=== PATIENT | female | born 1950 | race Caucasian/White ===

== ENCOUNTER → 2020-10-18 13:52 | Outpatient (BNVA) | payer MEDICARE, SELFPAY | PROVIDERS: PCP Internal Medicine; Visit Provider Hospitalist | DX: J44.9 Chronic obstructive pulmonary disease, unspecified (principal); R91.8 Other nonspecific abnormal finding of lung field | CPT/HCPCS: 99202 ==

== ENCOUNTER → 2021-05-09 10:57 | Outpatient (BNVA) | payer MEDICARE, SELFPAY | PROVIDERS: PCP Internal Medicine; Visit Provider Hospitalist ==

== ENCOUNTER 2021-09-06 10:55 | Outpatient (REF) | payer MEDICARE, MEDICAID, SELFPAY ==
--- NOTE | 2021-09-06 17:30 | PFT_ITS ---
FLOWS: FEV1 50% of predicted at 1.19 L. FVC 69% of predicted at 2.19 L. FEV1 to FVC ratio of 0.54. No bronchodilator response. LUNG VOLUMES: Total lung capacity 99% of predicted at 5.27 L. Residual volume 130% of predicted at 2.99 L. Slow vital capacity 76% of predicted at 2.27 L. Expiratory reserve volume 52% of predicted at 0.38 L. Diffusion capacity is moderately decreased, diffusion capacity adjusts to being mildly decreased after correction for alveolar ventilation. IMPRESSION: Moderate to severe obstructive ventilatory defect with no bronchodilator response. Increased residual volume suggests air trapping. Decreased diffusion capacity suggests emphysema. MD DULCE MARIA Pop/MODL / [id number]
== END 2021-09-06 10:56 | disposition home or self-care (01) ==
LOC: HO.RESP 10:55
PROVIDERS: PCP Internal Medicine; Visit Provider Hospitalist
DX: J41.0 Simple chronic bronchitis (principal)
CPT/HCPCS: 94060; 94727; 94729

== ENCOUNTER → 2021-10-03 10:49 | Outpatient (BNVA) | payer MEDICARE, MEDICAID, SELFPAY | PROVIDERS: PCP Internal Medicine; Visit Provider Hospitalist | DX: R91.8 Other nonspecific abnormal finding of lung field (principal); J41.0 Simple chronic bronchitis; F17.200 Nicotine dependence, unspecified, uncomplicated | CPT/HCPCS: 99212 ==

== ENCOUNTER 2022-07-18 11:41 | Outpatient (REF) | payer MEDICARE, OTHER, SELFPAY ==
[2022-07-18 11:57] LABS: MANUAL DIFF FLAG NO
[2022-07-18 12:12] LABS: Basophils Percent Auto 0.6 % (0-2); Eosinophils Absolute Auto 0.1 X10*3/uL (0.0-0.4); Eosinophils Percent Auto 1.8 % (0-4); Hematocrit 41.9 % (37.0-47.0); Hemoglobin 14.3 g/dl (12.0-16.0); Imm Gran Abs Auto 0.01 X10*3/uL (0.00-0.03); Imm Gran Pct Auto 0.1 % (0.0-0.4); Lymphocytes Absolute Auto 1.7 X10*3/uL (1.2-4.9); Mean Corpuscular HGB Conc 34.1 g/dl (31.0-35.0); Mean Corpuscular Hemoglobin 32.1 pg (27.0-33.0); Mean Corpuscular Volume 94.2 fL (80.0-98.0); Mean Platelet Volume 9.4 fL (9.4-12.3); Monocytes Absolute Auto 0.8 X10*3/uL (0.1-1.2); Monocytes Percent Auto 11.3 % (2-11); Neutrophils Absolute Auto 4.1 x10*3/uL (2.0-8.3); Neutrophils Percent Auto 61.2 % (45-73); Platelet Count 313 X10*3/uL (160-400); Red Blood Count 4.45 X10*6/uL (4.20-5.50); White Blood Count 6.7 X10*3/uL (4.8-10.8)
[2022-07-18 12:48] LABS: Erythrocyte Sedimentation Rate 5 MM/HR (0-20)
[2022-07-19 21:47] LABS: Immunoglobulin E 206 kU/L (<OR=114)
[2022-07-20 16:18] LABS: Cyclic Citrullinated Peptide <16 UNITS
[2022-07-20 22:07] LABS: Anti Nuclear Antibody Screen NEGATIVE (NEGATIVE)
[2022-07-21 05:26] LABS: Angiotensin Converting Enzyme 20 U/L (9-67)
[2022-07-23 14:26] LABS: Asperg fumigatus Precip Abs NEGATIVE (NEGATIVE); Micropoly faeni Abs NEGATIVE (NEGATIVE); Pigeon serum Abs NEGATIVE (NEGATIVE); Saccharo pora viridis Abs NEGATIVE (NEGATIVE); Thermo candidus Abs NEGATIVE (NEGATIVE); Thermoa vulgaris #1 NEGATIVE (NEGATIVE)
== END 2022-07-18 11:42 | disposition home or self-care (01) ==
LOC: HO.LAB 11:41
PROVIDERS: PCP Internal Medicine; Visit Provider Hospitalist
DX: J18.9 Pneumonia, unspecified organism (principal); R91.8 Other nonspecific abnormal finding of lung field; J41.0 Simple chronic bronchitis; F17.200 Nicotine dependence, unspecified, uncomplicated
CPT/HCPCS: 36415; 82164; 82785; 85025; 85652; 86038; 86039; 86200; 86331; 86606; 86609; 99212

== ENCOUNTER → 2022-10-25 11:16 | Outpatient (BNVA) | payer MEDICARE, OTHER, SELFPAY | PROVIDERS: PCP Internal Medicine; Visit Provider Hospitalist | DX: R91.8 Other nonspecific abnormal finding of lung field (principal); J41.0 Simple chronic bronchitis; F17.200 Nicotine dependence, unspecified, uncomplicated; Z71.6 Tobacco abuse counseling | CPT/HCPCS: 99212 ==

== ENCOUNTER → 2023-05-11 15:18 | Outpatient (BNVA) | payer MEDICARE, OTHER, SELFPAY | PROVIDERS: PCP Internal Medicine; Visit Provider Hospitalist | DX: R91.8 Other nonspecific abnormal finding of lung field (principal); J41.0 Simple chronic bronchitis; F17.200 Nicotine dependence, unspecified, uncomplicated | CPT/HCPCS: 99212 ==

== ENCOUNTER 2024-05-08 12:44 | Outpatient (REF) | payer MEDICARE, MEDICAID, SELFPAY ==
--- NOTE | ~2024-05-08 | CT_ITS ---
EXAMINATION: CT CHEST WITHOUT CONTRAST CLINICAL INFORMATION: Other nonspecific abnormal finding of lung field. COMPARISON: CT chest dated 06/27/2022. TECHNIQUE: Multidetector volumetric CT imaging of the chest was done. Axial MIP volume rendering provided. Sagittal and coronal reformatted images were obtained. This CT examination was performed using dose optimization techniques as appropriate, variously including the following: *Automated exposure control *Adjustment of mA and/or kV according to patient size (this includes techniques or standardized protocols for targeted exams where dose is matched to indication/reason for exam; i.e. extremities or head) *Use of iterative reconstruction technique DLP: 124 mGy-cm FINDINGS: [employer]: The lungs are symmetrically well-expanded and grossly clear. LUNGS: A small benign, calcified granuloma is seen at the right apex (5:68). There are several noncalcified right lung nodules. The largest within the right upper lobe is seen within the posterior segment abutting the pleural surface, measuring 6 mm (5:140). The largest nodule within the right lower lobe is situated in the anterior basal segment (5:321), measuring 5 mm. As well, there are several scattered noncalcified left lung nodules. The largest within the left upper lobe is located in the apicoposterior segment (5:130), measuring 5 mm. The remaining left lung nodules are quite small, measuring 1-3 mm. These bilateral lung nodules appear stable from 06/27/2022. There is overall interim decrease in size and number of pulmonary nodules. There is no mass, infiltrate or groundglass opacity. There are mild centrilobular emphysematous changes. There is scar/subsegmental atelectasis within the anterior and posterior bases, without associated focal airway obstruction. There is mild small airway thickening. The central airways appear patent. MEDIASTINUM: The mediastinum is normal. CORONARY ARTERY CALCIFICATION: Mild. PLEURA: There is no pleural effusion. No pleural mass or thickening. AXILLA: No lymphadenopathy. UPPER ABDOMEN: Unremarkable. OSSEOUS STRUCTURES: There is multi-level lower cervical and thoracic degenerative disc disease and endplate arthropathy. No acute or aggressive osseous finding is noted. CT/CT chest wo IV con IMPRESSION: 1. There are benign, stable noncalcified and calcified bilateral lung nodules, the largest measuring 6 mm within the posterior segment of the right upper lobe. Overall, there is interim decrease in size and number of pulmonary nodules. According to the UPDATED 2017 Fleischner Society recommendations, the advised follow-up imaging for multiple solid nodules, the largest measuring 6 mm or greater, is: LOW RISK PATIENT: CT at 3-6 months, then consider CT at 18-24 months. HIGH RISK PATIENT: CT at 3-6 months, then at 18-24 months. 2. There are mild centrilobular emphysematous changes. 3. There are bibasilar scattered foci of scar/subsegmental atelectasis, without associated focal airway obstruction. 4. No thoracic lymphadenopathy or pleural effusion is seen. 5. There are degenerative changes of the spine. Fleischner guidelines were followed.
== END 2024-05-08 12:45 | disposition home or self-care (01) ==
LOC: HO.CT 12:44
PROVIDERS: PCP Internal Medicine; Visit Provider Hospitalist
DX: R91.8 Other nonspecific abnormal finding of lung field (principal)
CPT/HCPCS: 71250

== ENCOUNTER 2024-12-30 13:33 | Outpatient (AMB) | payer MEDICARE, MEDICAID, SELFPAY ==
--- NOTE | 2024-12-30 13:40 | A.OFFVIS_ITS ---
Vital Signs 12/30/24 13:41 Height 5 ft 5 in Weight 151 lb 0.266 oz BMI 25.1 BP 170/90 H Blood Pressure Location Rt brachial Position Sitting Pulse 84 Pulse Source Pulse Oximeter Pulse Oximetry (%) 98 Oxygen Delivery Method Room Air Intake Visit Reasons: COPD Allergies moxifloxacin [From Avelox] Allergy (Severe, Verified 12/30/24 13:45) Anaphylaxis levofloxacin [From Levaquin] Adverse Reaction (Severe, Verified 12/30/24 13:45) Anaphylaxis HPI Comments Details: The patient is a 74-year-old woman with a known history of COPD in addition to pulmonary nodules. She has been using her trilogy inhaler once a day. However, she still requires her short-acting beta agonists once a day as well. Usually for shortness of breath. Currently she feels well. She denies any significant mucus production or chest discomfort. She did undergo a CT scan of the chest done the lung cancer screening program demonstrating stable pulmonary nodules. She did have it done at [facility]. Right now I do not have the access to look at the CT scan myself, but I will make arrangements to do so. Her pulmonary nodules have been small and stable. In addition to that she has been using her respiratory therapy with effect. She still struggling with smoking. Sometimes her cravings a significant specially with the COVID-19 infections in the pandemic. Makes her anxious and she wants to smoke. When that happens she has but the patch on. She is going to try using the smaller 7 mg patch that she can use daily. 05/09/2021 the patient is here for pulmonary follow-up visit. Overall she has been doing well from a respiratory status. The inhaler, Trelegy, has been working well. She continues to use it daily. She has not required her short- acting beta agonist. She has not required any prednisone. Unfortunately, she continues to smoke cigarettes. She has been through some stressful situations. At times the cravings with sick versus significant. We did talk about her nicotine patch but I do not believe this will help her in that moment in time. She would be something the or quicker such as the Nicotrol inhaler. I will submit that to her insurance company in order for her to continue the tobacco cessation which will hopefully improve her respiratory status. the patient has tried and failed the continue patch. She does have underlying pulmonary nodules. She is scheduled for CT scan of the chest at [facility] sometime or in mid May. 10/03/2021 the patient is here for a pulmonary follow-up visit. She continues to have dyspnea on exertion. Moderate in severity. She continues to have good response to the Trelegy inhaler. Is working well. She has not required her short-acting beta agonist. She understands that she needs to start exercising. I did give her information about online pulmonary rehab. She is considering getting a stationary bike which is also reasonable. She did undergo pulmonary function studies that I personally reviewed with her. She does have severe COPD in addition to that has significant air trapping and moderate diffusion impairment. Patient's DLCO still good enough that she does not require oxygen supplementation. She knows to continue working on the smoking. She needs to quit completely. The patient is scheduled to have a repeat CT scan of the chest sometime in the summer of 2021. Will follow up with her in the fall and review that together. Otherwise the patient is to call if any other issues arise prior to the next visit 07/18/2022 the patient is here for a pulmonary follow-up visit. Since we last spoke the patient has been dealing with significant tragedies in her life. her brother recently . After he back in March she started becoming significantly stressed and she went back to smoking. She has been smoking between half to 1 pack a day. She has also noticed increasing shortness of breath specially with the heat and humidity. She has been undergoing the chest medical she. The last CT scan was June of 2022. she was set up for an urgent follow-up in view of the abnormal findings. Patient appeared to have stable pulmonary nodules although now has new multiple bilateral subsolid nodules and ground-glass nodular densities both in the upper lobes. the patient also has evidence of chronic bronchitis and again the stable noncalcified pulmonary nodules also identified. As far as her home she denies any exposure to any mold or any birds. The only significant factor is that she has been smoking again. Explained to her the smoking related interstitial lung conditions are possible. The patient is interested in quitting. Will start her on Wellbutrin and also a patch. In the meantime the patient has evidence of chronic bronchitis. Therefore will treated for chronic bronchitis and also has had been having some chest tightness so therefore will also give her some steroids. I am hopeful michael t by treating her aggressively and by her quitting smoking her that we can repeat her CT scan in 3 months since he improvement of those areas. In the meantime were also going to request blood work. 05/11/2023 The patient is here for a pulmonary follow-up visit. The patient has been doing relatively well. She continues to use her respiratory medications with good effect. She did try to stop the azithromycin 3 times a week. But, her symptoms started getting worse again and her cough got worse and her chest congestion also got worse. Therefore she went back on it. Seems to be tolerating well. She did have an EKG with primary care doctor. She still struggling with smoking. She did not want to take the Wellbutrin or chantix because she was concerned about the side effects. This will be a more effective medication for her anyway. The patient knows people that have taking it already and had done well with that. Therefore she is open to starting this medication. She will start with a starter pack it and then when she is tolerating that she can call me and I will send the additional maintenance medication to the pharmacy. We did review her last CT scan that she had just la st week 05/11/2023 demonstrating interval improvement in the pulmonary nodules. 12/30/2024 the patient is here for pulmonary follow-up visit. The patient has been sick now for a month or 2. She has had initially significant chest congestion was given a course of antibiotics by her primary care. She has had 2 chest x-rays which have been okay. She notes complaining of some sinus pressure and some postnasal drip. She has a hard time expectorating. She needs to get another Acapella valve at some went to the [employer] in order for her to get 1. She has used it before and she notes that using. She also has a nebulizer. Seems like a nebulizer is working okay. She needs use it at least twice a day to help over chest PT and mucus clearance. In the meantime the patient will be started antibiotics to treat her for the sinusitis and also chronic bronchitis. We did provide her with a sputum cup and we were to get a sputum culture to sent to the laboratory and if this is growing a different type of organism the requires a different antibiotic at least we can change her antibiotic course at that point. Patient will return a couple months if she has any issues prior to that she will call for an earlier assessment. [facility] Medical History (Updated 12/30/24 @ 22:40 by Jose Alvarez MD) Sinusitis Hypertension Chest pain Pneumonitis Tobacco dependence Pulmonary nodules COPD (chronic obstructive pulmonary disease) Family History (Updated 10/18/20 @ 19:49 by Jose Alvarez MD) Other HTN (hypertension) Social History (Updated 12/30/24 @ 13:45 by Evelyn Torre CMA) Patient Tobacco Use Status: Former Tobacco user Years Smoked: 20 years Review of Systems Const Denies night sweats ENT Denies change in voice, Denies lip swelling, Denies mouth pain, Reports nasal congestion, Reports nasal discharge, Reports post nasal drip, Reports sinus pa in, Reports sinus pressure and Denies tongue swelling Card Denies chest pain and Reports dyspnea on exertion Resp Denies change in phlegm color, Reports chest congestion, Reports cough, Reports dyspnea on exertion and Denies wheezing GI Denies abdominal pain Musc Denies no additional complaints Neuro Denies Neuro-related abnormal movements Psych Denies no additional complaints Tony/Lymph Denies easy bleeding and Denies lymphadenopathy Aller/Immun Denies lip swelling, Denies tongue swelling and Denies wheezing Physical Exam Vital Signs: Last Vital Signs Pulse 84 12/30/24 13:41 BP 170/90 H 12/30/24 13:41 Pulse Ox 98 12/30/24 13:41 Oxygen Delivery Method Room Air 12/30/24 13:41 BMI result Body Mass Index 25.1 Const General: alert Neck Neck: Yes normal visual inspection, Yes full ROM and Yes no lymphadenopathy Chest Chest palpation & inspection: normal inspection of the chest Resp Auscultation: no rhonchi, no wheezes and diminished lung sounds Cardio Rate: regular rate Rhythm: regular rhythm Heart sounds: S1 normal heart sound present and S2 normal heart sound present GI Palpation (GI): Soft to palpation and nontender Auscultation: normal bowel sounds Skin General skin exam: rashes and/or lesions noted Quality Reporting (2019) Adult ([facility] 138/01/03/69) Smoking risk assessment performed?: Yes Patient Tobacco Use Status: Current everyday Tobacco user Assessment & Plan Assessment & Plan (1) Pulmonary nodules: Code(s): R91.8 - Other nonspecific abnormal finding of lung field Category: Medical (2) COPD (chronic obstructive pulmonary disease): Code(s): J44.9 - Chronic obstructive pulmonary disease, unspecified Category: Medical Qualifiers: COPD type: chronic bronchitis Chronic bronchitis type: mucopurulent Qualified Code(s): J41.1 - Mucopurulent chronic bronchitis (3) Tobacco dependence: Code(s): F17.200 - Nicotine dependence, unspecified, uncomplicated Category: Medical (4) Hypertension: Code(s): I10 - Essential (primary) hypertension Category: Medical Qualifiers: Hypertension type: primary hypertension Qualified Code(s): I10 - Essential (primary) hypertension (5) Chest pain: Code(s): R07.9 - Chest pain, unspecified Category: Medical Qualifiers: Chest pain type: unspecified Qualified Code(s): R07.9 - Chest pain, unspecified (6) Sinusitis: Code(s): J32.9 - Chronic sinusitis, unspecified Category: Medical Qualifiers: Sinusitis location: unspecified location Chronicity: subacute Qualified Code(s): J01.90 - Acute sinusitis, unspecified Plan continue Trelegy inhaler short-acting beta agonist as needed stopped azithromycin 3 times a week start Augmentin Sputum cx EKG Bloodwork Tobacco cessation: CT scan of the chest in 4-6 months Follow-up in 2 months Needs to F/U with PCP for a BP check Orders: Orders Troponin-I High Sensitivity Today I10 - Essential (primary) hypertension, R07.9 - Chest pain, unspecified Complete Blood Count Auto Diff Today I10 - Essential (primary) hypertension, R07.9 - Chest pain, unspecified Erythrocyte Sedimentation Rate Today I10 - Essential (primary) hypertension, R07.9 - Chest pain, unspecified Basic Metabolic Panel Today I10 - Essential (primary) hypertension, R07.9 - Chest pain, unspecified ECG 12 lead EKG Today J44.9 - Chronic obstructive pulmonary disease, unspecified, R07.9 - Chest pain, unspecified Sputum Cult + Gram stain Today R91.1 - Solitary pulmonary nodule CT chest wo IV con 4 Months R91.8 - Other nonspecific abnormal finding of lung field Medications: New amoxicillin-pot clavulanate 875-125 mg 1 tab PO BID 14 days 28 tabs 0RF ipratropium-albuterol 0.5 mg-3 mg(2.5 mg base)/3 mL 3 mL inhalation BID 30 days 180 mL 11RF J44.9 - Chronic obstructive pulmonary disease, unspecified Coding Level of Care Code Est Pt Level 4 (97990) Complex EM visit Add On G2211 Diagnoses Pulmonary nodules R91.8 Mucopurulent chronic bronchitis J41.1 COPD type: chronic bronchitis Chronic bronchitis type: mucopurulent Tobacco dependence F17.200 Primary hypertension I10 Hypertension type: primary hypertension Chest pain, unspecified type R07.9 Chest pain type: unspecified Subacute sinusitis, unspecified location J01.90 Sinusitis location: unspecified location Chronicity: subacute Time Spent (min) 18
[2024-12-30 13:41] VITALS: BP 170/90; PULSE 84; O2SAT 98; BMI 25.1
--- OUTSIDE RECORDS SUMMARY | 2024-12-30 14:30 | XMS_ITS | Encounter Summary ---
Author Organization [facility] Address [address] [place] [address] Care Team Providers Care Horticultural Manager Name Role Phone Jersey Rodriguez MD Primary Care Provider + [phone] Encounter Details Date Type Department Care Team (Latest Contact Info) Description 12/05/2024 9:13 AM EST - 12/05/2024 11:59 PM EST Hospital Encounter [facility] Xray [address] [place] [id number] Acute cough Discharge Disposition: Home or Self Care Social History Tobacco Use Types Packs/Day Years Used Date Smoking Tobacco: Former Cigarettes Q uit: 10/12/2018 Smokeless Tobacco: Never Alcohol Use Standard Drinks/Week Comments Yes 0 (1 standard drink = 0.6 oz pur e alcohol) Comments No Sex and Gender Information Value Date Recorded Sex Assigned at Female 10/16/2024 2:59 PM EST Legal Sex Female 10:27 PM EST Gender Identity Female 10/16/2024 2:59 PM EST Sexual Orientation Choose not to disclose 2023 2:59 PM EST documented as of this encounter Discharge Disposition Disposition Code Departure Means Destination Home or Self Care documented in this encounter Plan of Treatment Not on file documented as of this encounter Procedures Procedure Name Priority Date/Time Associated Diagnosis Comments XR CHEST 2 VIEWS Routine 12/05/2024 9:31 AM EST Acute cough documented in this encounter Results * XR Chest 2 Views (12/05/2024 9:31 AM EST) Anatomical Region Laterality Modality Body Radiographic Kristie ging 12/05/2024 12:0 8 PM EST Impressions 12/05/2024 12:09 PM EST No acute pulmonary disease. ??Findings as above consistent with COPD. ??Mild cardiomegaly. ??No change since 11/17/2024. Code 92361 -------- FINAL REPORT -------- Dictated By: Fermin Rae Dictated Date: 12/05/2024 12:08 ET Assigned Physician: Fermin Rae Reviewed and Electronically Signed By: Fermin Rae Signed Date: 12/05/2024 12:09 ET Workstation ID: [id number] Transcribed By: Self Edit Transcribed Date: 12/05/2024 12:08 ET Narrative 12/05/2024 12:09 PM EST HISTORY: The patient is a 74-year-old female with dyspnea and recent upper respiratory infection. FINDINGS: PA and lateral radiographs of the chest demonstrate mild levoscoliosis of the thoracic spine and dextroscoliosis of the thoracic lumbar spine as also seen on the prior study performed 11/17/2024. ??The cardiac silhouette remains mildly enlarged. ??The aortic knob is calcified. ??The lungs are again seen to be hyperinflated with flattening of the diaphragm consistent with chronic obstructive pulmonary disease. ??There is no consolidation, mass, pulmonary vascular congestion, or pleural effusion. Procedure Note Fermin Rae MD - 12/05/2024 HISTORY: The patient is a 74-year-old female with dyspnea and recent upperrespiratory infection. FINDINGS: PA and lateral radiographs of the chest demonstrate mildlevoscoliosis of the thoracic spine and dextroscoliosis of the thoraciclumbar spine as also seen on the prior study performed 11/17/2024. Thecardiac silhouette remains mildly enlarged. The aortic knob is calcified.The lungs are again seen to be hyperinflated with flattening of thediaphragm consistent with chronic obstructive pulmonary disease. There isno consolidation, mass, pulmonary vascular congestion, or pleuraleffusion. IMPRESSION: No acute pulmonary disease. Findings as above consistent with COPD. Mildcardiomegaly. No change since 11/17/2024. Code 87345 -------- FINAL REPORT -------- Dictated By: Fermin Rae Dictated Date: 12/05/2024 12:08 ET Assigned Physician: Fermin Rae Reviewed and Electronically Signed By: Fermin Rae Signed Date: 12/05/2024 12:09 ET Workstation ID: [id number] Transcribed By: Self Edit Transcribed Date: 12/05/2024 12:08 ET us Jersey Rodriguez MD IMG XR PROCEDURES Final Resu lt documented in this encounter Visit Diagnoses Diagnosis Acute cough documented in this encounter Care Teams Horticultural Manager Relationship Specialty Start Date End Date Jersey Rodriguez MD [address] [place] [id number] PCP - General Internal Medicine 10/16/24 documented as of this encounter
--- OUTSIDE RECORDS SUMMARY | 2024-12-30 14:30 | XMS_ITS | Clinical Summary ---
Author Organization [facility] Address [address] [place] [address] Phone Care Team Providers Care International Manager Name Role Phone Milly Smith MD Primary Care Provider [phone] Encounters Date Type Department Care Team Description 12/05/2024 9:13 AM EST - 12/05/2024 11:59 PM EST Hospital Encounter [facility] [address] [place] [phone] Acute cough Discharge Disposition: Home or Self Care 11/25/2024 1:21 PM EST - 11/25/2024 11:59 PM EST Hospital Encounter [facility] at [address] [phone] Encounter for other screening for malignant neoplasm of breast Discharge Disposition: Home or Self Care 11/17/2024 1:24 PM EST - 11/17/2024 11:59 PM EST Hospital Encounter [facility] Xray [address] [place] [phone] Respiratory infection Discharge Disposition: Home or Self Care 10/02/2024 Telephone Gastroenterology - 299 [facility] [address] [phone] Fred Townsend MD from Last 3 Months Surgical History Surgery Date Site/Laterality Comments STEREOTACTIC CORE BIOPSY Medical History Medical History Date Comments COPD (chronic obstructive pu lmonary disease) (CMS/HCC) DX:COPD (chronic obstructive pulmonary disease) (HCC) Diverticulosis DX:Diverticulosi s Osteoarthritis DX:Osteoarthriti s Family History Medical History Relation Name Comments No Known Problems Father Heart attack Maternal Grandfather Emphysema Mother Heart failure Mother No Known Problems Paternal Grandfather No Known Problems Paternal Grandmother Relation Name Status Comments Father Maternal Grandfather Mother Paternal Grandfather Paternal Grandmother Social History Tobacco Use Types Packs/Day Years [...] not to disclose 2023 2:59 PM EST Obstetrics History Para Term AB IAB SAB Ectopic Multiple Livin g Live Births 2 Last Filed Vital Signs Vital Sign Reading Time Taken Comments Blood Pressure - - Pulse - - Temperature - - Respiratory Rate - - Oxygen Saturation - - Inhaled Oxygen Concentration - - Weight 66.2 kg (146 lb) 11/25/2024 1:40 PM EST Height 167.6 cm (5' 6 ) 11/25/2024 1:40 PM EST Body Mass Index 23.57 11/25/2024 1:40 PM EST Plan of Treatment Health Maintenance Due Date Last Done Comments DTaP,Tdap,and Td Vaccines (1 - Tdap) 1969 Zoster Vaccines (1 of 2) 02/03/2000 RSV Immunization Patients 60+ Years Old (1 - Risk 60-74 years 1-dose series) 2010 Pneumococcal Vaccine: 50+ Years (2 of 2 - PPSV23) 12/16/2018 10/21/2018 Colorectal Cancer Screening: Colonoscopy 10/15/2022 Depression Screening 10/15/2022 Falls Risk Assessment 10/15/2022 Hepatitis C Screening 10/15/2022 Medicare Annual Wellness Visit 10/15/2022 Social Influencers of Health Screening 10/15/2022 COVID-19 Vaccine ( - season) 2024 Influenza Vaccine (#1) 2024 09/04/2019, 2017 Breast Cancer Screening 11/25/2026 11/25/19, 11/08/2023, 10/19/2022, Additional history exists Osteoporosis Screening (Bone Density Screening) 11/08/2033 11/08/2023, 10/27/2019 HIB Vaccines Aged Out No longer eligi ble based on patient's age to complete this topic HPV Vaccines Aged Out No longer eligi ble based on patient's age to complete this topic Hepatitis A Vaccines Aged Out No long er eligible based on patient's age to complete this topic Hepatitis B Vaccines Aged Out No long er eligible based on patient's age to complete this topic IPV Vaccines Aged Out No longer eligi ble based on patient's age to complete this topic MMR Vaccines Aged Out No longer eligi ble based on patient's age to complete this topic Meningococcal ACWY Vaccine Aged Out N o longer eligible based on patient's age to complete this topic Meningococcal B Vacine Aged Out No lo nger eligible based on patient's age to complete this topic RSV Immunization Patients Under 20 months Aged Out No longer eligible based on patient's age to complete this topic Varicella Vaccines Aged Out No longer eligible based on patient's age to complete this topic Procedures Procedure Name Priority Date/Time Associated Diagnosis Comments XR CHEST 2 VIEWS Routine 12/05/2024 9:31 AM EST Acute cough MG MAMMO DIGITAL SCREENING W DONOVAN BILAT Routine 11/25/2024 1:57 PM EST Encounter for other screening for malignant neoplasm of breast XR CHEST 2 VIEWS Routine 11/17/2024 1:36 PM EST Respiratory infection MINA DEXA AXIAL SKELETON Routine 11/08/2023 10:12 AM EST Encounter for screening for osteoporosis from Last 3 Months or Most Recently Relevant to Health Maintenance Results * XR Chest 2 Views (12/05/2024 9:31 AM EST) Only the most recent of2 resultswithin the time period is included. Anatomical Region Laterality Modality Body Radiographic Kristie ging 12/05/2024 12:0 8 PM EST Impressions 12/05/2024 12:09 PM EST No acute pulmonary disease. ??Findings as above consistent with COPD. ??Mild cardiomegaly. ??No change since 11/17/2024. Code 26367 -------- FINAL REPORT -------- Dictated By: Kusum Rae Dictated Date: 12/05/2024 12:08 ET Assigned Physician: Kusum Rae Reviewed and Electronically Signed By: Kusum Rae Signed Date: 12/05/2024 12:09 ET Workstation ID: [id number] Transcribed By: Self Edit Transcribed Date: 12/05/2024 [...] vascular congestion, or pleural effusion. Procedure Note Kusum Rae MD - 12/05/2024 HISTORY: The patient [...] COPD. Mildcardiomegaly. No change since 11/17/2024. Code 73662 -------- FINAL REPORT -------- Dictated By: Kusum Rae Dictated Date: 12/05/2024 12:08 ET Assigned Physician: Kusum Rae Reviewed and Electronically Signed By: Kusum Rae Signed Date: 12/05/2024 12:09 ET Workstation ID: [id number] Transcribed By: Self Edit Transcribed Date: 12/05/2024 12:08 ET us Milly Smith MD IMG XR PROCEDURES Final Resu lt * MG Mammo Digital Screening w Donovan bilat (11/25/2024 1:57 PM EST) Anatomical Region Laterality Modality Breast Bilateral Mammography 11/25/2024 4:23 PM EST Impressions 11/25/2024 4:33 PM EST No mammographic evidence of malignancy. ?? No suspicious interval change. A negative mammogram in the presence of a clinically suspicious palpable abnormality does not preclude the possibility of malignancy or alter the indications for biopsy. ASSESSMENT: ?? BI-RADS 2: BENIGN RECOMMENDATION(S): 1: Routine screening mammogram BILATERAL in 1 year. -------- FINAL REPORT -------- Dictated By: Tanner Mccall Dictated Date: 11/25/2024 16:23 ET Assigned Physician: Tanner Mccall Reviewed and Electronically Signed By: Tanner Mccall Signed Date: 11/25/2024 16:33 ET Workstation ID: [id number] Transcribed By: Self Edit Transcribed Date: 11/25/2024 16:23 ET Narrative 11/25/2024 4:33 PM EST EXAM: ??SCREENING MAMMOGRAPHY, BILATERAL HISTORY: ??SCREENING. ??No additional history. COMPARISON: ??11/08/2023, 10/19/2022 TECHNIQUE: Synthesized CC and MLO projections of each breast. ??Tomosynthesis of each breast in the CC and MLO projections. ADDITIONAL IMAGING: None Computer-aided detection was employed with the iCAD ??profound AI 3-D. TISSUE DENSITY: The breasts are heterogeneously dense, which may obscure small masses. (BI-RADS category C) FINDINGS: RIGHT BREAST: No suspicious mass. No suspicious calcification. No distortion. ?? Stable equal density 0.7 cm oval asymmetry 1.6 cm behind the right nipple on the MLO projection. No suspicious change in the region of a biopsy site marker LEFT BREAST: No suspicious mass. No suspicious calcification. No distortion. ?? No additional suspicious right breast findings Procedure Note Tanner Mccall MD - 11/25/2024 EXAM: SCREENING MAMMOGRAPHY, BILATERAL HISTORY: SCREENING. No additional history. COMPARISON: 11/08/2023, 10/19/2022 TECHNIQUE: Synthesized CC and MLO projections of each breast.Tomosynthesis of each breast in the CC and MLO projections. ADDITIONAL IMAGING: None Computer-aided detection was employed with the iCAD profound AI 3-D. TISSUE DENSITY: The breasts are heterogeneously dense, which may obscuresmall masses. (BI-RADS category C) FINDINGS: RIGHT BREAST: No suspicious mass. No suspicious calcification. No distortion. Stableequal density 0.7 cm oval asymmetry 1.6 cm behind the right nipple on theMLO projection. No suspicious change in the region of a biopsy site marker LEFT BREAST: No suspicious mass. No suspicious calcification. No distortion. Noadditional suspicious right breast findings IMPRESSION: No mammographic evidence of malignancy. No suspicious interval change. A negative mammogram in the presence of a clinically suspicious palpableabnormality does not preclude the possibility of malignancy or alter theindications for biopsy. ASSESSMENT: BI-RADS 2: BENIGN RECOMMENDATION(S): 1: Routine screening mammogram BILATERAL in 1 year. -------- FINAL REPORT -------- Dictated By: Tanner Mccall Dictated Date: 11/25/2024 16:23 ET Assigned Physician: Tanner Mccall Reviewed and Electronically Signed By: Tanner Mccall Signed Date: 11/25/2024 16:33 ET Workstation ID: [id number] Transcribed By: Self Edit Transcribed Date: 11/25/2024 16:23 ET Milly Smith MD IMG BI PROCEDURES Final Resu lt * MINA DEXA AXIAL SKELETON (11/08/2023 10:12 AM EST) Anatomical Region Laterality Modality Mammography 11/08/2023 9:35 AM EST Narrative 11/08/2023 10:12 AM EST [facility] Diagnostic Imaging Department [address] [place] [id number] Patient: ??CRYSTAL HUIZAR ?/Age/Sex: 1950 - 73 - F Unit#: ??[id number] ? Location/Status: ??SPDIMAM/REG CLI ? Mnemonic/Ordering Site: ??MAMDEXAAX/SPMAM Ordering Physician: ??MILLY SMITH MD Mina Dexa Axial Skeleton - 11/08/23 - 1003 Report Status:Signed HISTORY: ??The patient is a 73-year-old postmenopausal female with clinical concern for metabolic bone disease. The patient has a history of left hip replacement surgery. FINDINGS: ??Dual energy x-ray absorptiometry of the lumbar spine and right femur is performed. The mean bone mineral density at L1-3 is 1.333 gm/cm2 which is 114% of that of young normals and 136% of that of age matched controls. This yields a T-score of 1.4 and a Z-score of 2.9 and there is therefore no evidence of osteoporosis or osteopenia here. The mean bone mineral density of the right femur is 0.835 gm/cm2 which is 83% of that of young normals and 103% of that of age matched controls. ??This yields a T-score of -1.4 and a Z-score of 0.2 which is diagnostic of osteopenia. The T- score of the right femoral neck is -2.2 which is diagnostic of osteopenia. IMPRESSION: 1. Osteopenia. ??There has been an increase of 2.9% in bone mineral density in the lumbar spine since the prior examination of 10/27/2019. ??There has been a decrease of 2.0% in bone mineral density in the right femur. 2. FRAX analysis yields a 10-year probability of major osteoporotic fracture of 14.2% and a 10-year probability of hip fracture of 3.7%. Code 89801 Dictating Physician: ??KUSUM RAE MD Electronically Signed by: ??KUSUM RAE MD Dic Date/Time: ??11/08/23 1008 Sign date/Time: ??11/08/23 1012 Procedure Note Kusum Rae MD - 12/18/2023 [facility] Diagnostic Imaging Department [address] [place] [address] Patient: CRYSTAL HUIZAR./Age/Sex: 1950 - 73 - F Unit#: [id number] [facility]Ordering Site: [facility] Ordering Physician: MILLY SMITH MD [facility] Dexa Axial Skeleton - 11/08/23 - 100 Report Status:Signed HISTORY: The patient is a 73-year-old postmenopausal female withclinical concern for metabolic bone disease. The patient has a history of lefthip replacement surgery. FINDINGS: Dual energy x-ray absorptiometry of the lumbar spine and rightfemur is performed. The mean bone mineral density at L1-3 is 1.333 gm/cm2 whichis 114% of that of young normals and 136% of that of age matched controls.This yields a T-score of 1.4 and a Z-score of 2.9 and there is therefore noevidence of osteoporosis or osteopenia here. The mean bone mineral density of the right femur is 0.835 gm/cm2 which is83% of that of young normals and 103% of that of age matched controls. Thisyields a T-score of -1.4 and a Z-score of 0.2 which is diagnostic of osteopenia.The T- score of the right femoral neck is -2.2 which is diagnostic ofosteopenia. IMPRESSION: 1. Osteopenia. There has been an increase of 2.9% in bone mineral densityin the lumbar spine since the prior examination of 10/27/2019. There hasbeen a decrease of 2.0% in bone mineral density in the right femur. 2. FRAX analysis yields a 10-year probability of major osteoporoticfracture of 14.2% and a 10-year probability of hip fracture of 3.7%. Code 18077 Dictating Physician: KUSUM RAE MD Electronically Signed by: KUSUM RAE MD Dic Date/Time: 11/08/23 1008 Sign date/Time: 11/08/23 1012 Milly Smith MD IMG BI PROCEDURES Final Resu lt from Last 3 Months or Most Recently Relevant to Health Maintenance Insurance [place] [id number] MEDICARE Advance Directives Documents on File Type Date Recorded Patient Internal Investigator Expl anation Health Care Decision (hx) 11/27/2018 AD ALEMAN DIRECTIVE Health Care Decision (hx) 11/27/2018 AD ALEMAN DIRECTIVE Health Care Decision (hx) 11/27/2018 AD ALEMAN DIRECTIVE Health Care Decision (hx) 11/27/2018 AD ALEMAN DIRECTIVE Health Care Decision (hx) 11/27/2018 AD ALEMAN DIRECTIVE Health Care Decision (hx) 11/27/2018 AD ALEMAN DIRECTIVE Health Care Decision (hx) 11/27/2018 AD ALEMAN DIRECTIVE Health Care Decision (hx) 11/27/2018 AD ALEMAN DIRECTIVE Health Care Decision (hx) 11/27/2018 AD ALEMAN DIRECTIVE Health Care Decision (hx) 11/27/2018 AD ALEMAN DIRECTIVE Health Care Decision (hx) 11/27/2018 AD ALEMAN DIRECTIVE Health Care Decision (hx) 11/27/2018 AD ALEMAN DIRECTIVE Health Care Decision (hx) 11/27/2018 AD ALEMAN DIRECTIVE Health Care Decision (hx) 11/27/2018 AD ALEMAN DIRECTIVE Health Care Decision (hx) 11/27/2018 AD ALEMAN DIRECTIVE Health Care Decision (hx) 11/27/2018 AD ALEMAN DIRECTIVE Health Care Decision (hx) 11/27/2018 AD ALEMAN DIRECTIVE Health Care Decision (hx) 11/27/2018 AD ALEMAN DIRECTIVE Health Care Decision (hx) 11/27/2018 AD ALEMAN DIRECTIVE Health Care Decision (hx) 11/27/2018 AD ALEMAN DIRECTIVE Health Care Decision (hx) 11/26/2018 AD ALEMAN DIRECTIVE Health Care Decision (hx) 11/26/2018 AD ALEMAN DIRECTIVE Health Care Decision (hx) 11/26/2018 AD ALEMAN DIRECTIVE Health Care Decision (hx) 11/26/2018 AD ALEMAN DIRECTIVE Health Care Decision (hx) 11/26/2018 AD ALEMAN DIRECTIVE Health Care Decision (hx) 11/26/2018 AD ALEMAN DIRECTIVE Health Care Decision (hx) 11/26/2018 AD ALEMAN DIRECTIVE Health Care Decision (hx) 11/26/2018 AD ALEMAN DIRECTIVE Health Care Decision (hx) 11/26/2018 AD ALEMAN DIRECTIVE Health Care Decision (hx) 11/26/2018 AD ALEMAN DIRECTIVE Health Care Decision (hx) 11/26/2018 AD ALEMAN DIRECTIVE Health Care Decision (hx) 11/26/2018 AD ALEMAN DIRECTIVE Health Care Decision (hx) 11/26/2018 AD ALEMAN DIRECTIVE Health Care Decision (hx) 11/26/2018 AD ALEMAN DIRECTIVE Health Care Decision (hx) 11/26/2018 AD ALEMAN DIRECTIVE Health Care Decision (hx) 11/26/2018 AD ALEMAN DIRECTIVE Health Care Decision (hx) 11/26/2018 AD ALEMAN DIRECTIVE Health Care Decision (hx) 11/26/2018 AD ALEMAN DIRECTIVE Health Care Decision (hx) 11/26/2018 AD ALEMAN DIRECTIVE Health Care Decision (hx) 11/26/2018 AD ALEMAN DIRECTIVE Care Teams International Manager Relationship Specialty Start Date End Date Milly Smith MD [address] [place] [address] PCP - General Internal Medicine 10/16/24
== END 2024-12-30 14:19 | disposition home or self-care (01) ==
PROVIDERS: PCP Internal Medicine; Visit Provider Hospitalist
DX: R91.8 Other nonspecific abnormal finding of lung field (principal); J41.1 Mucopurulent chronic bronchitis; F17.200 Nicotine dependence, unspecified, uncomplicated; I10 Essential (primary) hypertension; R07.9 Chest pain, unspecified; J01.90 Acute sinusitis, unspecified
CPT/HCPCS: 99214; G2211

== ENCOUNTER → 2024-12-30 14:20 | Outpatient (REF) | payer MEDICARE, MEDICAID, SELFPAY ==
[2024-12-30 14:42] LABS: MANUAL DIFF FLAG NO
--- NOTE | 2024-12-30 14:44 | ECG_ITS ---
Test Reason : COPD Blood Pressure : */* mmHG Vent. Rate : 88 BPM Atrial Rate : 88 BPM P-R Int : 156 ms QRS Dur : 80 ms QT Int : 388 ms P-R-T Axes : 57 24 52 degrees QTcB Int : 469 ms Sinus rhythm with occasional Premature ventricular complexes Nonspecific ST abnormality Abnormal ECG No previous ECGs available Referred By: Jose Alvarez Electronically Signed By: MICHAEL BENITEZ
--- OUTSIDE RECORDS SUMMARY | 2024-12-30 15:22 | XMS_ITS | Encounter Summary ---
Author Organization [facility] Address [address] [place] [address] Care Team Providers Care Software Specialist Name Role Phone Jersey Rodriguez MD Primary Care Provider + [phone] Encounter Details Date Type Department Care Team (Latest Contact Info) Description 12/05/2024 9:13 AM EST - 12/05/2024 11:59 PM EST Hospital Encounter [facility] Xray [address] [place] [phone] Acute cough Discharge Disposition: Home or Self [...] ??Mild cardiomegaly. ??No change since 11/17/2024. Code 65165 -------- FINAL REPORT -------- Dictated By: Fermin Rae Dictated Date: 12/05/2024 12:08 ET Assigned Physician: Fermin Rae Reviewed and Electronically Signed By: Fermin Rae Signed Date: 12/05/2024 12:09 ET Workstation ID: [id number] Transcribed By: Self Edit Transcribed Date: 12/05/2024 [...] COPD. Mildcardiomegaly. No change since 11/17/2024. Code 88817 -------- FINAL REPORT -------- Dictated By: Fermin Rae Dictated Date: 12/05/2024 12:08 ET Assigned Physician: Fermin Rae Reviewed and Electronically Signed By: Fermin Rae Signed Date: 12/05/2024 12:09 ET Workstation ID: [id number] Transcribed By: Self Edit Transcribed Date: 12/05/2024 12:08 ET us Jersey Rodriguez MD IMG XR PROCEDURES Final Resu lt documented in this encounter Visit Diagnoses Diagnosis Acute cough documented in this encounter Care Teams Software Specialist Relationship Specialty Start Date End Date Jersey Rodriguez MD [address] [place] [address] PCP - General Internal Medicine 10/16/24 documented as of this encounter
--- OUTSIDE RECORDS SUMMARY | 2024-12-30 15:22 | XMS_ITS | Clinical Summary ---
Author Organization [facility] Address [address] [place] [address] Phone Care Team Providers Care Transition Teacher Name Role Phone Milly Smith MD Primary Care Provider [phone] Encounters Date Type Department Care Team Description 12/05/2024 9:13 AM EST - 12/05/2024 11:59 PM EST Hospital Encounter [facility] Xray [address] [place] [phone] Acute cough Discharge Disposition: Home or Self Care 11/25/2024 1:21 PM EST - 11/25/2024 11:59 PM EST [facility] [address] [phone] Encounter for other screening for malignant neoplasm of breast Discharge Disposition: Home or Self Care 11/17/2024 1:24 PM EST - 11/17/2024 11:59 PM EST Hospital Encounter [facility] Xray [address] [place] [phone] Respiratory infection Discharge Disposition: Home or Self Care 10/02/2024 Telephone Gastroenterology - 299 [facility] [address] [phone] Fred Townsend MD from Last 3 Months [...] ??Mild cardiomegaly. ??No change since 11/17/2024. Code 43707 -------- FINAL REPORT -------- Dictated By: Kusum Rae Dictated Date: 12/05/2024 12:08 ET Assigned Physician: Kusum Rae Reviewed and Electronically Signed By: Kusum Rae Signed Date: 12/05/2024 12:09 ET Workstation ID: [id number] Transcribed By: Self Edit Transcribed Date: 12/05/2024 [...] COPD. Mildcardiomegaly. No change since 11/17/2024. Code 45951 -------- FINAL REPORT -------- Dictated By: Kusum Rae Dictated Date: 12/05/2024 12:08 ET Assigned Physician: Kusum Rae Reviewed and Electronically Signed By: Kusum Rae Signed Date: 12/05/2024 12:09 ET Workstation ID: [id number] Transcribed By: Self Edit Transcribed Date: 12/05/2024 [...] Signed Date: 11/25/2024 16:33 ET Workstation ID: [id number] Transcribed By: Self Edit Transcribed Date: 11/25/2024 [...] Signed Date: 11/25/2024 16:33 ET Workstation ID: [id number] Transcribed By: Self Edit Transcribed Date: 11/25/2024 16:23 ET Milly Smith MD IMG BI PROCEDURES Final Resu lt * MINA DEXA AXIAL SKELETON (11/08/2023 10:12 AM EST) Anatomical Region Laterality Modality Mammography 11/08/2023 9:35 AM EST Narrative 11/08/2023 10:12 AM EST [facility] Diagnostic Imaging Department [address] [place] [address] Patient: ??CRYSTAL HUIZAR ?/Age/Sex: 1950 - 73 - F Unit#: ??[id number] ? Location/Status: ??SPDIMAM/REG CLI ? Mnemonic/Ordering Site: [...] probability of hip fracture of 3.7%. Code 72578 Dictating Physician: ??KUSUM RAE MD Electronically Signed by: ??KUSUM RAE MD Dic Date/Time: ??11/08/23 1008 Sign date/Time: ??11/08/23 1012 Procedure Note Kusum Rae MD - 12/18/2023 [facility] Diagnostic Imaging Department [address] [place] [address] Patient: CRYSTAL HUIZAR./Age/Sex: 1950 - 73 - F Unit#: [id number] [facility]Ordering Site[facility] Ordering Physician: MILLY SMITH MD [facility] Dexa Axial Skeleton - 11/08/23 - 100 [...] probability of hip fracture of 3.7%. Code 59354 Dictating Physician: KUSUM RAE MD Electronically Signed by: KUSUM RAE MD Dic Date/Time: 11/08/23 1008 Sign date/Time: 11/08/23 1012 Milly Smith MD IMG BI PROCEDURES Final Resu lt from Last 3 Months or Most Recently Relevant to Health Maintenance [place] [id number] MEDICARE Advance Directives Documents on File Type Date Recorded Patient Consumer Safety Inspector Expl anation Health Care Decision (hx) 11/27/2018 [...] (hx) 11/26/2018 AD ALEMAN DIRECTIVE Care Teams Transition Teacher Relationship Specialty Start Date End Date Milly Smith MD [address] [place] [address] PCP - General Internal Medicine 10/16/24
[2024-12-30 15:35] LABS: Basophils Percent Auto 0.5 % (0-2); Eosinophils Absolute Auto 0.2 X10*3/uL (0.0-0.4); Hemoglobin 14.2 g/dl (12.0-16.0); Imm Gran Abs Auto 0.02 X10*3/uL (0.00-0.03); Imm Gran Pct Auto 0.3 % (0.0-0.4); Lymphocytes Absolute Auto 2.2 X10*3/uL (1.2-4.9); Lymphocytes Percent Auto 29.2 % (20-40); Mean Corpuscular HGB Conc 34.6 g/dl (31.0-35.0); Mean Corpuscular Hemoglobin 32.3 pg (27.0-33.0); Mean Corpuscular Volume 93.4 fL (80.0-98.0); Mean Platelet Volume 9.4 fL (9.4-12.3); Monocytes Absolute Auto 0.6 X10*3/uL (0.1-1.2); Monocytes Percent Auto 8.3 % (2-11); Neutrophils Absolute Auto 4.6 x10*3/uL (2.0-8.3); Neutrophils Percent Auto 59.7 % (45-73); Platelet Count 413 X10*3/uL (160-400); Red Blood Count 4.39 X10*6/uL (4.20-5.50); Red Cell Distribution Width 13.5 % (11.0-16.0); White Blood Count 7.7 X10*3/uL (4.8-10.8)
[2024-12-30 16:01] LABS: Anion Gap 12 (12-20); Blood Urea Nitrogen 10 mg/dL (9-16); Calcium 9.1 mg/dL (8.4-10.2); Carbon Dioxide 27 mmol/L (22-29); Chloride 108 mmol/L (96-108); Estimated Glomerular Filt Rate > 60; Glucose Random 85 mg/dL (60-115); Potassium 3.7 mmol/L (3.3-5.1); Sodium 143 mmol/L (135-145)
[2024-12-30 16:13] LABS: Troponin-I High Sensitivity < 2.7 ng/L (<3.5-17.0)
[2024-12-30 16:21] LABS: Erythrocyte Sedimentation Rate 10 MM/HR (0-20)
== END ==
LOC: HO.CARD 14:20
PROVIDERS: PCP Internal Medicine; Visit Provider Hospitalist
DX: R07.9 Chest pain, unspecified (principal); I10 Essential (primary) hypertension; R91.1 Solitary pulmonary nodule; J44.9 Chronic obstructive pulmonary disease, unspecified
CPT/HCPCS: 36415; 80048; 84484; 85025; 85652; 87070; 87205; 93005

== ENCOUNTER → 2024-12-30 14:44 | Outpatient (BNV) | payer MEDICARE, MEDICAID, SELFPAY | PROVIDERS: PCP Internal Medicine; Visit Provider Internal Medicine | DX: R94.31 Abnormal electrocardiogram [ECG] [EKG] (principal); J44.9 Chronic obstructive pulmonary disease, unspecified | CPT/HCPCS: 93010 ==

== ENCOUNTER 2025-03-06 11:02 | Outpatient (AMB) | payer MEDICARE, MEDICAID, SELFPAY ==
[2025-03-06 11:09] VITALS: BP 136/66; PULSE 80; O2SAT 97; BMI 24.6
--- NOTE | 2025-03-06 11:09 | MHC.OFFVIS ---
Vital Signs 03/06/25 11:09 Height 5 ft 5 in Weight 147 lb 11.355 oz BMI 24.6 BP 136/66 Blood Pressure Location Lt brachial Position Sitting Pulse 80 Pulse Source Pulse Oximeter Pulse Oximetry (%) 97 Oxygen Delivery Method Room Air Intake Visit Reasons: 2m f/u COPD Dump Motorman Required: No Accompanied by: Self / Same As Patient Allergies moxifloxacin [From Avelox] Allergy (Severe, Verified 03/06/25 11:13) Anaphylaxis levofloxacin [From Levaquin] Adverse Reaction (Severe, Verified 03/06/25 11:13) Anaphylaxis HPI Comments Details: The patient is a 75-year-old woman with a known history of COPD in addition to pulmonary nodules. She has been using her trilogy inhaler once a day. However, she still requires her short-acting beta agonists once a day as well. Usually for shortness of breath. Currently she feels well. She denies any significant mucus production or chest discomfort. She did undergo a CT scan of the chest done the lung cancer screening program demonstrating stable pulmonary nodules. She did have it done at [facility]. Right now I do not have the access to look at the CT scan myself, but I will make arrangements to do so. Her pulmonary nodules have been small and stable. In addition to that she has been using her respiratory therapy with effect. She still struggling with smoking. Sometimes her cravings a significant specially with the COVID-19 infections in the pandemic. Makes her anxious and she wants to smoke. When that happens she has but the patch on. She is going to try using the smaller 7 mg patch that she can use daily. 05/09/2021 the patient is here for pulmonary follow-up visit. Overall she has been doing well from a respiratory status. The inhaler, Trelegy, has been working well. She continues to use it daily. She has not required her short-acting beta agonist. She has not required any prednisone. Unfortunately, she continues to smoke cigarettes. She has been through some stressful situations. At times the cravings with sick versus significant. We did talk about her nicotine patch but I do not believe this will help her in that moment in time. She would be something the or quicker such as the Nicotrol inhaler. I will submit that to her insurance company in order for her to continue the tobacco cessation which will hopefully improve her respiratory status. the patient has tried and failed the continue patch. She does have underlying pulmonary nodules. She is scheduled for CT scan of the chest at [facility] sometime or in mid May. 10/03/2021 the patient is here for a pulmonary follow-up visit. She continues to have dyspnea on exertion. Moderate in severity. She continues to have good response to the Trelegy inhaler. Is working well. She has not required her short-acting beta agonist. She understands that she needs to start exercising. I did give her information about online pulmonary rehab. She is considering getting a stationary bike which is also reasonable. She did undergo pulmonary function studies that I personally reviewed with her. She does have severe COPD in addition to that has significant air trapping and moderate diffusion impairment. Patient's DLCO still good enough that she does not require oxygen supplementation. She knows to continue working on the smoking. She needs to quit completely. The patient is scheduled to have a repeat CT scan of the chest sometime in the summer. Will follow up with her in the fall and review that together. Otherwise the patient is to call if any other issues arise prior to the next visit 07/18/2022 the patient is here for a pulmonary follow-up visit. Since we last spoke the patient has been dealing with significant tragedies in her life. her brother recently . After he back in March she started becoming significantly stressed and she went back to smoking. She has been smoking between half to 1 pack a day. She has also noticed increasing shortness of breath specially with the heat and humidity. She has been undergoing the chest medical she. The last CT scan was June of 2022. she was set up for an urgent follow-up in view of the abnormal findings. Patient appeared to have stable pulmonary nodules although now has new multiple bilateral subsolid nodules and ground-glass nodular densities both in the upper lobes. the patient also has evidence of chronic bronchitis and again the stable noncalcified pulmonary nodules also identified. As far as her home she denies any exposure to any mold or any birds. The only significant factor is that she has been smoking again. Explained to her the smoking related interstitial lung conditions are possible. The patient is interested in quitting. Will start her on Wellbutrin and also a patch. In the meantime the patient has evidence of chronic bronchitis. Therefore will treated for chronic bronchitis and also has had been having some chest tightness so therefore will also give her some steroids. I am hopeful that by treating her aggressively and by her quitting smoking her that we can repeat her CT scan in 3 months since he improvement of those areas. In the meantime were also going to request blood work. 05/11/2023 The patient is here for a pulmonary follow-up visit. The patient has been doing relatively well. She continues to use her respiratory medications with good effect. She did try to stop the azithromycin 3 times a week. But, her symptoms started getting worse again and her cough got worse and her chest congestion also got worse. Therefore she went back on it. Seems to be tolerating well. She did have an EKG with primary care doctor. She still struggling with smoking. She did not want to take the Wellbutrin or chantix because she was concerned about the side effects. This will be a more effective medication for her anyway. The patient knows people that have taking it already and had done well with that. Therefore she is open to starting this medication. She will start with a starter pack it and then when she is tolerating that she can call me and I will send the additional maintenance medication to the pharmacy. We did review her last CT scan that she had just last week 05/11/2023 demonstrating interval improvement in the pulmonary nodules. 12/30/2024 the patient is here for pulmonary follow-up visit. The patient has been sick now for a month or 2. She has had initially significant chest congestion was given a course of antibiotics by her primary care. She has had 2 chest x-rays which have been okay. She notes complaining of some sinus pressure and some postnasal drip. She has a hard time expectorating. She needs to get another Acapella valve at some went to the [employer] in order for her to get 1. She has used it before and she notes that using. She also has a nebulizer. Seems like a nebulizer is working okay. She needs use it at least twice a day to help over chest PT and mucus clearance. In the meantime the patient will be started antibiotics to treat her for the sinusitis and also chronic bronchitis. We did provide her with a sputum cup and we were to get a sputum culture to sent to the laboratory and if this is growing a different type of organism the requires a different antibiotic at least we can change her antibiotic course at that point. Patient will return a couple months if she has any issues prior to that she will call for an earlier assessment. 03/06/2025 the patient is here for pulmonary follow-up visit. She complains of worsening congestion and productive cough. Moderate severity. Also has increased shortness of breath with activity. Kaje-ev-vbfjyjrz severity. Has been using her inhaler with partial improvement of symptoms. He feels he has significant allergies at this time as well. She is due for CAT scan of the chest sometime in April 2025. She has pulmonary nodules any follow-up. She is hoping to get that CAT scan at [facility] instead because is easier for her to get to. Will go ahead and do that in the meantime I do believe that she needs additional therapies for significant chronic bronchitis that she has significant rhonchi on exam. We did talk about PD for inhibitors. I am going to go ahead and request Ohtuvayre nebulizer therapy that will be effective in improving her respiratory capacity in decreasing the chest congestion. [facility] Medical History (Updated 12/30/24 @ 22:40 by Jose Alvarez MD) Sinusitis Hypertension Chest pain Pneumonitis Tobacco dependence Pulmonary nodules COPD (chronic obstructive pulmonary disease) Family History (Updated 10/18/20 @ 19:49 by Jose Alvarez MD) Other HTN (hypertension) Social History (Updated 03/06/25 @ 11:14 by Zainab Del Cid CMA) Alcohol intake: current Alcohol intake frequency: holidays/special occasions only Patient Tobacco Use Status: Former Tobacco user Years Smoked: 20 years Review of Systems Const Denies chills, Denies fatigue, Denies fever(s), Denies weight gain and Denies weight loss ENT Denies dizziness, Denies lip swelling and Denies tongue swelling Card Denies chest pain, Denies leg edema, Denies lightheadedness, Denies palpitations, Reports dyspnea on exertion, Denies orthopnea and Denies other Resp Reports chest congestion, Reports cough, Reports dyspnea on exertion and Reports wheezing GI Denies hematochezia and Denies change in stool character Musc Denies abnormal gait, Denies muscle weakness, Denies numbness, Denies radiating pain into limb and Denies tingling Neuro Denies abnormal gait, Denies dizziness, Denies numbness and Denies tingling Psych Denies no additional complaints Endo Denies fatigue and Denies palpitations Tony/Lymph Denies easy bleeding and Denies lymphadenopathy Aller/Immun Denies lip swelling, Denies tongue swelling and Reports wheezing Physical Exam Vital Signs: Last Vital Signs Pulse 80 03/06/25 11:09 BP 136/66 03/06/25 11:09 Pulse Ox 97 03/06/25 11:09 Oxygen Delivery Method Room Air 03/06/25 11:09 BMI result Body Mass Index 24.6 Const General: alert Neck Neck: Yes normal visual inspection, Yes full ROM and Yes no lymphadenopathy Chest Chest palpation & inspection: normal inspection of the chest Resp Auscultation: no rhonchi, no wheezes and diminished lung sounds Cardio Rate: regular rate Rhythm: regular rhythm Heart sounds: S1 normal heart sound present and S2 normal heart sound present GI Palpation (GI): Soft to palpation and nontender Auscultation: normal bowel sounds Skin General skin exam: rashes and/or lesions noted Assessment & Plan Assessment & Plan (1) Pulmonary nodules: Code(s): R91.8 - Other nonspecific abnormal finding of lung field Category: Medical (2) COPD (chronic obstructive pulmonary disease): Code(s): J44.9 - Chronic obstructive pulmonary disease, unspecified Category: Medical Qualifiers: COPD type: chronic bronchitis Chronic bronchitis type: mucopurulent Qualified Code(s): J41.1 - Mucopurulent chronic bronchitis (3) Tobacco dependence: Code(s): F17.200 - Nicotine dependence, unspecified, uncomplicated Category: Medical (4) Hypertension: Code(s): I10 - Essential (primary) hypertension Category: Medical Qualifiers: Hypertension type: primary hypertension Qualified Code(s): I10 - Essential (primary) hypertension (5) Chest pain: Code(s): R07.9 - Chest pain, unspecified Category: Medical Qualifiers: Chest pain type: unspecified Qualified Code(s): R07.9 - Chest pain, unspecified (6) Sinusitis: Code(s): J32.9 - Chronic sinusitis, unspecified Category: Medical Qualifiers: Chronicity: subacute Sinusitis location: unspecified location Qualified Code(s): J01.90 - Acute sinusitis, unspecified Plan continue Trelegy inhaler short-acting beta agonist as needed stopped azithromycin 3 times a week start ohtuvayre nebs BID consider Daliresp Sputum cx Tobacco cessation: F/U 4 months Coding Level of Care Code Est Pt Level 4 (21723) Complex EM visit Add On G2211 Diagnoses Pulmonary nodules R91.8 Mucopurulent chronic bronchitis J41.1 COPD type: chronic bronchitis Chronic bronchitis type: mucopurulent Tobacco dependence F17.200 Primary hypertension I10 Hypertension type: primary hypertension Chest pain, unspecified type R07.9 Chest pain type: unspecified Subacute sinusitis, unspecified location J01.90 Chronicity: subacute Sinusitis location: unspecified location Time Spent (min) 17
--- OUTSIDE RECORDS SUMMARY | 2025-03-06 11:50 | XMS_ITS | Clinical Summary ---
Author Organization [facility] Address [address] [place] [address] Phone Care Team Providers Care Caul Fat Puller Name Role Phone Milly Smith MD Primary Care Provider + [phone] Surgical History Surgery Date Site/Laterality Comments STEREOTACTIC CORE BIOPSY Medical History Medical History Date Comments COPD (chronic obstructive pu lmonary disease) ([facility] V24, [facility] V28) DX:COPD (chronic o bstructive pulmonary disease) ([facility]) Diverticulosis DX:Diverticulosi s Osteoarthritis DX:Osteoarthriti s Family [...] 1969 Zoster Vaccines (1 of 2) 02/03/2000 Pneumococcal Vaccine: 50+ Years (2 of 2 - PPSV23) 12/16/2018 10/21/2018 Colorectal Cancer Screening: Colonoscopy 10/15/2022 Depression Screening 10/15/2022 Falls Risk Assessment 10/15/2022 Hepatitis C Screening 10/15/2022 Medicare Annual Wellness Visit 10/15/2022 Social Influencers of Health Screening 10/15/2022 COVID-19 Vaccine ( season) 2024 RSV Immunization Adult Patients (1 - 1-dose 75+ series) 2025 Influenza Vaccine (Season Ended) 2025 09/04/2019, 10/01/2018 Osteoporosis Screening (Bone Density Screening) 11/08/2033 11/08/2023, 10/27/2019 Breast Cancer Screening Discontinued 11/25/19, 11/08/2023, 10/19/2022, Additional history exists HIB Vaccines Aged Out No longer eligi [...] age to complete this topic Meningococcal B Vaccine Aged Out No l onger eligible based on patient's age to complete this topic RSV Immunization Patients Under 20 months Aged Out No longer eligible based on patient's age to complete this topic Varicella Vaccines Aged Out No longer eligible based on patient's age to complete this topic Procedures Procedure Name Priority Date/Time Associated Diagnosis Comments MG MAMMO DIGITAL SCREENING W DONOVAN BILAT Routine 11/25/2024 1:57 PM EST Encounter for other screening for malignant neoplasm of breast MARCELINA DEXA AXIAL SKELETON Routine 11/08/2023 10:12 AM EST Encounter for screening for osteoporosis from Last 3 Months or Most Recently Relevant to Health Maintenance Results * MG Mammo Digital Screening w Donovan [...] Signed Date: 11/25/2024 16:33 ET Workstation ID: [id number] Transcribed By: Self Edit Transcribed Date: 11/25/2024 [...] None 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 TISSUE DENSITY: The breasts are [...] Signed Date: 11/25/2024 16:33 ET Workstation ID: [id number] Transcribed By: Self Edit Transcribed Date: 11/25/2024 16:23 ET us Milly Smith MD IMG BI PROCEDURES Final Resu lt * MARCELINA DEXA AXIAL SKELETON (11/08/2023 10:12 AM EST) Anatomical Region Laterality Modality Mammography 11/08/2023 9:35 AM EST Narrative 11/08/2023 10:12 AM EST [facility] Diagnostic Imaging Department [address] [place] [address] Patient: ??CRYSTAL HUIZAR ?/Age/Sex: 1950 - Unit#: ??[id number] ? Location/Status: ??SPDIMAM/REG CLI ? Mnemonic/Ordering Site: ??MAMDEXAAX/SPMAM Ordering Physician: ??MILLY SMITH MD [facility] Dexa Axial Skeleton - 11/08/23 - 1003 [...] probability of hip fracture of 3.7%. Code 79232 Dictating Physician: ??KUSUM RAE MD Electronically Signed by: ??KUSUM RAE MD Dic Date/Time: ??11/08/23 1008 Sign date/Time: ??11/08/23 1012 Procedure Note Kusum Rae MD - 12/18/2023 [facility] Diagnostic Imaging Department [address] [place] [address] Patient: CRYSTAL HUIZAR Kaleb BeltránB./Age/Sex: 1950 - 73 - F Unit#: [id number] Location/Status: [facility] Mnemonic/Ordering Site: [facility] Ordering Physician: MILLY SMITH MD [facility] Dexa Axial Skeleton - 11/08/23 - 100 [...] probability of hip fracture of 3.7%. 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
== END 2025-03-06 11:40 | disposition home or self-care (01) ==
LOC: HO.HPS 11:03
PROVIDERS: PCP Internal Medicine; Visit Provider Hospitalist
DX: R91.8 Other nonspecific abnormal finding of lung field (principal); J41.1 Mucopurulent chronic bronchitis; F17.200 Nicotine dependence, unspecified, uncomplicated; I10 Essential (primary) hypertension; R07.9 Chest pain, unspecified; J01.90 Acute sinusitis, unspecified
CPT/HCPCS: 99214; G2211

== ENCOUNTER → 2025-03-06 11:02 | Outpatient (BNVA) | payer MEDICARE, MEDICAID, SELFPAY | PROVIDERS: PCP Internal Medicine; Visit Provider Hospitalist | DX: J41.1 Mucopurulent chronic bronchitis (principal); R91.8 Other nonspecific abnormal finding of lung field; I10 Essential (primary) hypertension; R07.9 Chest pain, unspecified; J01.90 Acute sinusitis, unspecified; Z87.891 Personal history of nicotine dependence | CPT/HCPCS: 99212 ==

== ENCOUNTER 2025-08-10 14:16 | Outpatient (AMB) | payer MEDICARE, SELFPAY ==
--- NOTE | 2025-08-10 14:17 | A.OFFVIS_ITS ---
Vital Signs 08/10/25 14:18 Height 5 ft 5 in Weight 144 lb 6.444 oz BMI 24.0 BP 118/72 Blood Pressure Location Lt brachial Position Sitting Pulse 97 Pulse Source Pulse Oximeter Pulse Oximetry (%) 94 Oxygen Delivery Method Room Air Intake Visit Reasons: copd Director Of Slot Operations Required: No Accompanied by: Self / Same As Patient Allergies moxifloxacin (From Avelox) Allergy (Severe, Verified 08/10/25 14:21) Anaphylaxis levofloxacin (From Levaquin) Adverse Reaction (Severe, Verified 08/10/25 14:21) Anaphylaxis HPI Comments Details: The patient is a 75-year-old woman with a known history of COPD in addition to pulmonary nodules. She has been using her trilogy inhaler once a day. However, she still requires her short-acting beta agonists once a day as well. Usually for shortness of breath. Currently she feels well. She denies any significant mucus production or chest discomfort. She did undergo a CT scan of the chest done the lung cancer screening program demonstrating stable pulmonary nodules. She did have it done at [facility]. Right now I do not have the access to look at the CT scan myself, but I will make arrangements to do so. Her pulmonary nodules have been small and stable. In addition to that she has been using her respiratory therapy with effect. She still struggling with smoking. Sometimes her cravings a significant specially with the COVID-19 infections in the pandemic. Makes her anxious and she wants to smoke. When that happens she has but the patch on. She is going to try using the smaller 7 mg patch that she can use daily. 05/09/2021 the patient is here for pulmonary follow-up visit. Overall she has been doing well from a respiratory status. The inhaler, Trelegy, has been working well. She continues to use it daily. She has not required her short- acting beta agonist. She has not required any prednisone. Unfortunately, she continues to smoke cigarettes. She has been through some stressful situations. At times the cravings with sick versus significant. We did talk about her nicotine patch but I do not believe this will help her in that moment in time. She would be something the or quicker such as the Nicotrol inhaler. I will submit that to her insurance company in order for her to continue the tobacco cessation which will hopefully improve her respiratory status. the patient has tried and failed the continue patch. She does have underlying pulmonary nodules. She is scheduled for CT scan of the chest at [facility] sometime or in mid May. 10/03/2021 the patient is here for a pulmonary follow-up visit. She continues to have dyspnea on exertion. Moderate in severity. She continues to have good response to the Trelegy inhaler. Is working well. She has not required her short-acting beta agonist. She understands that she needs to start exercising. I did give her information about online pulmonary rehab. She is considering getting a stationary bike which is also reasonable. She did undergo pulmonary function studies that I personally reviewed with her. She does have severe COPD in addition to that has significant air trapping and moderate diffusion impairment. Patient's DLCO still good enough that she does not require oxygen supplementation. She knows to continue working on the smoking. She needs to quit completely. The patient is scheduled to have a repeat CT scan of the chest sometime in the summer. Will follow up with her in the fall and review that together. Otherwise the patient is to call if any other issues arise prior to the next visit 07/18/2022 the patient is here for a pulmonary follow-up visit. Since we last spoke the patient has been dealing with significant tragedies in her life. her brother recently . After he back in March she started becoming significantly stressed and she went back to smoking. She has been smoking between half to 1 pack a day. She has also noticed increasing shortness of breath specially with the heat and humidity. She has been undergoing the chest medical she. The last CT scan was June of 2022. she was set up for an urgent follow-up in view of the abnormal findings. Patient appeared to have stable pulmonary nodules although now has new multiple bilateral subsolid nodules and ground-glass nodular densities both in the upper lobes. the patient also has evidence of chronic bronchitis and again the stable noncalcified pulmonary nodules also identified. As far as her home she denies any exposure to any mold or any birds. The only significant factor is that she has been smoking again. Explained to her the smoking related interstitial lung conditions are possible. The patient is interested in quitting. Will start her on Wellbutrin and also a patch. In the meantime the patient has evidence of chronic bronchitis. Therefore will treated for chronic bronchitis and also has had been having some chest tightness so therefore will also give her some steroids. I am hopeful that by treating her aggressively and by her quitting smoking her that we can repeat her CT scan in 3 months since he improvement of those areas. In the meantime were also going to request blood work. 05/11/2023 The patient is here for a pulmonary follow-up visit. The patient has been doing relatively well. She continues to use her respiratory medications with good effect. She did try to stop the azithromycin 3 times a week. But, her symptoms started getting worse again and her cough got worse and her chest congestion also got worse. Therefore she went back on it. Seems to be tolerating well. She did have an EKG with primary care doctor. She still struggling with smoking. She did not want to take the Wellbutrin or chantix because she was concerned about the side effects. This will be a more effective medication for her anyway. The patient knows people that have taking it already and had done well with that. Therefore she is open to starting this medication. She will start with a starter pack it and then when she is tolerating that she can call me and I will send the additional maintenance medication to the pharmacy. We did review her last CT scan that she had just last week 05/11/2023 demonstrating interval improvement in the pulmonary nodules. 12/30/2024 the patient is here for pulmonary follow-up visit. The patient has been sick now for a month or 2. She has had initially significant chest congestion was given a course of antibiotics by her primary care. She has had 2 chest x-rays which have been okay. She notes complaining of some sinus pressure and some postnasal drip. She has a hard time expectorating. She needs to get another Acapella valve at some went to the [facility] in order for her to get 1. She has used it before and she notes that using. She also has a nebulizer. Seems like a nebulizer is working okay. She needs use it at least twice a day to help over chest PT and mucus clearance. In the meantime the patient will be started antibiotics to treat her for the sinusitis and also chronic bronchitis. We did provide her with a sputum cup and we were to get a sputum culture to sent to the laboratory and if this is growing a different type of organism the requires a different antibiotic at least we can change her antibiotic course at that point. Patient will return a couple months if she has any issues prior to that she will call for an earlier assessment. 03/06/2025 the patient is here for pulmonary follow-up visit. She complains of worsening congestion and productive cough. Moderate severity. Also has increased shortness of breath with activity. Deng-zq-ihqhdeze severity. Has been using her inhaler with partial improvement of symptoms. He feels he has significant allergies at this time as well. She is due for CAT scan of the chest sometime in April 2025. She has pulmonary nodules any follow-up. She is hoping to get that CAT scan at [facility] instead because is easier for her to get to. Will go ahead and do that in the meantime I do believe that she needs additional therapies for significant chronic bronchitis that she has significant rhonchi on exam. We did talk about PD for inhibitors. I am going to go ahead and request Ohtuvayre nebulizer therapy that will be effective in improving her respiratory capacity in decreasing the chest congestion. 08/10/2025 the patient is here for pulmonary follow-up visit. Overall the patient has been doing well. She continues on the Trelegy and also started the Ohtuvayre nebs. The treatments have been affecting beneficial. Her cough is better. She has been off the azithromycin. She has not required any prednisone. She does use her rescue inhaler at times. Typically once or twice a week. She still has chest congestion. Unfortunately she continues to smoke cigarettes. She is trying to cut down altogether. Will continue with the current respiratory therapy. If the patient develops any worsening symptoms she can always call. [facility] Medical History (Updated 12/30/24 @ 22:40 by Jose Alvarez MD) Sinusitis Hypertension Chest pain Pneumonitis Tobacco dependence Pulmonary nodules COPD (chronic obstructive pulmonary disease) Family History (Updated 10/18/20 @ 19:49 by Jose Alvarez MD) Other HTN (hypertension) Social History Alcohol intake: current Alcohol intake frequency: holidays/special occasions only Patient Tobacco Use Status: Former Tobacco user Years Smoked: 20 years Review of Systems Const Denies chills, Denies fatigue, Denies fever(s), Denies weight gain and Denies weight loss ENT Denies dizziness, Denies lip swelling and Denies tongue swelling Card Denies chest pain, Denies leg edema, Denies lightheadedness, Denies palpitations, Reports dyspnea on exertion, Denies orthopnea and Denies other Resp Reports chest congestion, Reports cough, Reports dyspnea on exertion and Reports wheezing GI Denies hematochezia and Denies change in stool character Musc Denies abnormal gait, Denies muscle weakness, Denies numbness, Denies radiating pain into limb and Denies tingling Neuro Denies abnormal gait, Denies dizziness, Denies numbness and Denies tingling Psych Denies no additional complaints Endo Denies fatigue and Denies palpitations Tony/Lymph Denies easy bleeding and Denies lymphadenopathy Aller/Immun Denies lip swelling, Denies tongue swelling and Reports wheezing Physical Exam Vital Signs: Last Vital Signs Pulse 97 08/10/25 14:18 BP 118/72 08/10/25 14:18 Pulse Ox 94 08/10/25 14:18 Oxygen Delivery Method Room Air 08/10/25 14:18 BMI result Body Mass Index 24.0 Const General: alert Neck Neck: Yes normal visual inspection, Yes full ROM and Yes no lymphadenopathy Chest Chest palpation & inspection: normal inspection of the chest Resp Auscultation: no rhonchi, no wheezes and diminished lung sounds Cardio Rate: regular rate Rhythm: regular rhythm Heart sounds: S1 normal heart sound present and S2 normal heart sound present GI Palpation (GI): Soft to palpation and nontender Auscultation: normal bowel sounds Skin General skin exam: rashes and/or lesions noted Assessment & Plan Assessment & Plan (1) Pulmonary nodules: Code(s): R91.8 - Other nonspecific abnormal finding of lung field Category: Medical (2) COPD (chronic obstructive pulmonary disease): Code(s): J44.9 - Chronic obstructive pulmonary disease, unspecified Category: Medical Qualifiers: COPD type: chronic bronchitis Chronic bronchitis type: mucopurulent Qualified Code(s): J41.1 - Mucopurulent chronic bronchitis (3) Tobacco dependence: Code(s): F17.200 - Nicotine dependence, unspecified, uncomplicated Category: Medical (4) Hypertension: Code(s): I10 - Essential (primary) hypertension Category: Medical Qualifiers: Hypertension type: primary hypertension Qualified Code(s): I10 - Essential (primary) hypertension (5) Chest pain: Code(s): R07.9 - Chest pain, unspecified Category: Medical Qualifiers: Chest pain type: unspecified Qualified Code(s): R07.9 - Chest pain, unspecified Plan continue Trelegy inhaler short-acting beta agonist as needed continue ohtuvayre nebs BID Tobacco cessation: F/U 6-8 months Coding Level of Care Code Est Pt Level 4 (27807) Complex EM visit Add On G2211 Diagnoses Pulmonary nodules R91.8 Mucopurulent chronic bronchitis J41.1 COPD type: chronic bronchitis Chronic bronchitis type: mucopurulent Tobacco dependence F17.200 Primary hypertension I10 Hypertension type: primary hypertension Chest pain, unspecified type R07.9 Chest pain type: unspecified
[2025-08-10 14:18] VITALS: BP 118/72; PULSE 97; O2SAT 94; BMI 24.0
--- OUTSIDE RECORDS SUMMARY | 2025-08-10 16:05 | XMS_ITS | Clinical Summary ---
Author Organization [facility] Address [id number] [place] [address] Phone Care Team Providers Care Senior Application Security Consultant Name Role Phone Jersey Rodriguez MD Primary Care Provider [phone] Allergies Active Allergy Reactions Criticality Noted Date Comments Moxifloxacin Anaphylaxis High 06/30/2024 Levofloxacin (Bulk) Anaphylaxis High 06/30/2024 Medications TRELEGY ELLIPTA 100-62.5-25 mcg inhalation powder Inhale 1 puff into the lungs daily. 06/07/2024 Active albuterol 90 mcg/actuation inhaler Inhale 2 puffs into the lungs every 6 (six) hours as needed for wheezing. Active Active Problems No known active problems Family History Medical History Relation Comments Prostate cancer Brother Kidney failure Father Heart attack Maternal Grandfather multiple Heart disease Maternal Grandfather at 72 Emphysema Mother Emphysema Paternal Grandfather Kidney disease Paternal Grandmother Relation Status Comments Brother Father Maternal Grandfather Mother Paternal Grandfather Paternal Grandmother Social History Tobacco Use Types Packs/Day Years Used Date Smoking Tobacco: Former Cigarettes 0.5 38.7 S tarted: 11/12/1986 Smokeless Tobacco: Never Comments:Smoked on-and-off f or 35 years or so Alcohol Use Standard Drinks/Week Comments Yes 2 (1 standard drink = 0.6 oz pur e alcohol) 2 burbon nightly Education Answer Date Recorded Are you interested in more education? Not on noel e 02/15/2024 Are you concerned about learning? Not on file 02/15/2024 No 02/15/2024 No 02/15/2024 Digital Access Answer Date Recorded No 02/15/2024 No 02/15/2024 Reliable internet access at home? Not on file 02/15/2024 Device with a working camera? Not on file Comments Unknown Sex and Gender Information Value Date Recorded Sex Assigned at Not on file Legal Sex Female 2:03 PM EDT Gender Identity Not on file Sexual Orientation Not on file Last Filed Vital Signs Vital Sign Reading Time Taken Comments Blood Pressure 106/74 07/28/2024 2:12 PM EDT Pulse 81 07/28/2024 2:12 PM EDT Temperature - - Respiratory Rate - - Oxygen Saturation 96% 07/28/2024 2:12 PM EDT Inhaled Oxygen Concentration - - Weight 68.8 kg (151 lb 9.6 oz) 07/28/2024 2:12 P M EDT Height 166.4 cm (5' 5.5 ) 07/28/2024 2:12 PM EDT Body Mass Index 24.84 07/28/2024 2:12 PM EDT Plan of Treatment Health Maintenance Due Date Last Done Comments Adult Td,Tdap Booster 1950 LIPID PANEL 1950 DEPRESSION SCREENING 1962 SMOKING Hx and SMOKELESS TOB ACCO SCREENING 1963 HEPATITIS C SCREENING 02/03/1968 COLOGUARD 1995 COLONOSCOPY 1995 COLORECTAL CANCER SCREENING 1995 FIT TEST 1995 FOBT 1995 SIGMOIDOSCOPY 1995 VIRTUAL COLONOSCOPY 1995 PNEUMOCOCCAL VACCINES (50+ y ears) (1 of 1 - PCV) 02/03/2000 ZOSTER VACCINES (1 of 2) 02/03/2000 OSTEOPOROSIS SCREENING INITI AL (ONE-TIME) 2015 RSV VACCINE (1 - 1-dose 75+ series) 2025 INFLUENZA VACCINE (#1) 2025 COVID-19 VACCINE ( - 2023-2 5 season) 2025 HEPATITIS A VACCINES Aged Out No long er eligible based on patient's age to complete this topic HIB VACCINES Aged Out No longer eligi ble based on patient's age to complete this topic MENINGOCOCCAL VACCINES (ACWY) Aged Out No longer eligible based on patient's age to complete this topic MENINGOCOCCAL VACCINES (B) Aged Out N o longer eligible based on patient's age to complete this topic Medical Devices Not on file Insurance MEDICARE PART A & B Member Subscriber Plan / Payer ( fective 2015-Present) Name:Laquita Huizar Member ID:[id number] Relation to Subscriber:Self Name:Laquita Huizar Subscriber ID:[id number] Payer ID:[id number] Group ID:Not on file Type:Medicare Address: [email or web address] [address] FULL MEDICARE PART A & B Member Subscriber Plan / Payer ( fective 2015-Present) Name:Laquita Huizar Member ID:[id number] Relation to Subscriber:Self Name:Laquita Huizar Subscriber ID:[id number] Payer ID:[id number] Group ID:Not on file Type:Medicare Address: [email or web address] [address] FULL MEDICARE PART A & B [employer] FULL MEDICARE PART A & B [employer] FULL MEDICARE PART A & B [facility] FULL MEDICARE PART A & B [facility] FULL Care Teams Senior Application Security Consultant Relationship Specialty Start Date End Date Jersey Rodriguez MD [address] [place] [address] PCP - General Internal Medicine 02/14/24 Additional Source Comments The information contained in this document represents components of the legal health record. It is not the complete legal health record.[facility]
--- OUTSIDE RECORDS SUMMARY | 2025-08-10 16:05 | XMS_ITS | Clinical Summary ---
Author Organization [facility] Address [address] [place] [address] Phone Care Team Providers Care Source Inspector Name Role Phone Milly Smith MD Primary Care Provider [phone] Surgical History Surgery Date Site/Laterality Comments STEREOTACTIC CORE BIOPSY Medical History Medical History Date Comments COPD (chronic obstructive pu lmonary disease) ([facility] V24, CMS/HCC V28) DX:COPD (chronic o bstructive pulmonary disease) ([facility]) Diverticulosis DX:Diverticulosi s Osteoarthritis DX:Osteoarthriti s Family [...] 12/16/2018 10/21/2018 Colorectal Cancer Screening: Colonoscopy 10/15/2022 Falls Risk Assessment 10/15/2022 Hepatitis C Screening 10/15/2022 Medicare Annual Wellness Visit 10/15/2022 Social Influencers of Health Screening 10/15/2022 Depression Screening 11/12/2024 RSV Immunization Adult Patients (1 - 1-dose 75+ series) 2025 COVID-19 Vaccine ( - season) 2025 Influenza Vaccine (#1) 2025 09/04/2019, 2017 Osteoporosis Screening (Bone Density Screening) 11/08/2033 11/08/2023, [...] other screening for malignant neoplasm of breast MINA DEXA AXIAL SKELETON Routine 11/08/2023 10:12 AM EST Encounter for screening for osteoporosis from Last 3 Months or Most Recently Relevant to Health Maintenance Results * MG Mammo Digital Screening w Donovan bilat (11/25/2024 1:57 PM EST) Anatomical Region Laterality Modality Breast Bilateral Mammography 11/25/2024 4:23 PM EST Impressions 11/25/2024 4:33 PM EST No mammographic evidence of malignancy. No suspicious interval change. A negative mammogram in the presence of a clinically suspicious palpable abnormality does not preclude the possibility of malignancy or alter the indications for biopsy. ASSESSMENT: BI-RADS 2: BENIGN RECOMMENDATION(S): 1: Routine screening mammogram BILATERAL in 1 year. -------- FINAL REPORT -------- Dictated By: Tanner Mccall Dictated Date: 11/25/2024 16:23 ET Assigned Physician: Tanner Mccall Reviewed and Electronically Signed By: Tanner Mccall Signed Date: 11/25/2024 16:33 ET Workstation ID: [id number] Transcribed By: Self Edit Transcribed Date: 11/25/2024 16:23 ET Narrative 11/25/2024 4:33 PM EST EXAM: SCREENING MAMMOGRAPHY, BILATERAL HISTORY: SCREENING. No additional history. COMPARISON: 11/08/2023, 10/19/2022 TECHNIQUE: Synthesized CC and MLO projections of each breast. Tomosynthesis of each breast in the CC and MLO projections. ADDITIONAL IMAGING: None Computer-aided detection was employed with the [employer] AI 3-D. TISSUE DENSITY: The breasts are heterogeneously dense, which may obscure small masses. (BI-RADS category C) FINDINGS: RIGHT BREAST: No suspicious mass. No suspicious calcification. No distortion. Stable equal density 0.7 cm oval asymmetry 1.6 cm behind the right nipple on the MLO projection. No suspicious change in the region of a biopsy site marker LEFT BREAST: No suspicious mass. No suspicious calcification. No distortion. No additional suspicious right breast findings Procedure [...] Date: 11/25/2024 16:23 ET Assigned Physician: Tanner Mcacll Reviewed and Electronically Signed By: Tanner Mccall Signed Date: 11/25/2024 16:33 ET Workstation ID: [id number] Transcribed By: Self Edit Transcribed Date: 11/25/2024 16:23 ET Milly Smith MD IMG BI PROCEDURES Final Resu lt * MINA DEXA AXIAL SKELETON (11/08/2023 10:12 AM EST) Anatomical Region Laterality Modality Mammography 11/08/2023 9:35 AM EST Narrative 11/08/2023 10:12 AM EST [facility] Diagnostic Imaging Department [address] [place], [place] [id number] Patient: CRYSTAL HUIZAR /Age/Sex: 1950 - 73 - F Unit#: [id number] Location/Status: SPDIMAM/REG CLI Mnemonic/Ordering Site: MAMDEXAAX/SPMAM Ordering Physician: MILLY SMITH MD Mina Dexa Axial Skeleton - 11/08/23 - 1003 Report Status:Signed HISTORY: The patient is a 73-year-old postmenopausal female with clinical concern for metabolic bone disease. The patient has a history of left hip replacement surgery. FINDINGS: Dual energy x-ray absorptiometry [...] 103% of that of age matched controls. This yields a T-score of -1.4 and a Z-score of 0.2 which is diagnostic of osteopenia. The T- score of the right femoral neck is -2.2 which is diagnostic of osteopenia. IMPRESSION: 1. Osteopenia. There has been an increase of 2.9% in bone mineral density in the lumbar spine since the prior examination of 10/27/2019. There has been a decrease of 2.0% in bone mineral density in the right femur. 2. FRAX analysis yields a 10-year probability of major osteoporotic fracture of 14.2% and a 10-year probability of hip fracture of 3.7%. Code 18697 Dictating Physician: KUSUM RAE MD Electronically Signed by: KUSUM RAE MD Dic Date/Time: 11/08/23 1008 Sign date/Time: 11/08/23 1012 Procedure Note Kusum Rae MD - 12/18/2023 [facility] Diagnostic Imaging Department [address] [place] [id number] Patient: CRYSTAL HUIZAR Kaleb Rivera./Age/Sex: 1950 - 73 - F Unit#: [id number] [facility] Ordering Physician: MILLY SMITH MD Mina Dexa Axial Skeleton - 11/08/23 - 1003 Report Status:Signed HISTORY: The patient is a [...] probability of hip fracture of 3.7%. Code 86613 Dictating Physician: KUSUM RAE MD Electronically Signed by: KUSUM RAE MD Dic Date/Time: 11/08/23 1008 Sign date/Time: 11/08/23 1012 Milly Smith MD IMG BI PROCEDURES Final Resu lt from Last 3 Months or Most Recently Relevant to Health Maintenance Insurance MED[place] - [place] MEDICARE Advance Directives Documents on File Type Date Recorded Patient Resin Coater Expl anation Health Care Decision (hx) 11/27/2018 [...] (hx) 11/26/2018 AD ALEMAN DIRECTIVE Care Teams Source Inspector Relationship Specialty Start Date End Date Milly Smith MD [address] [place] [address] PCP - General Internal Medicine 10/16/24
== END 2025-08-10 14:40 | disposition home or self-care (01) ==
LOC: HO.HPS 14:17
PROVIDERS: PCP Internal Medicine; Visit Provider Hospitalist
DX: R91.8 Other nonspecific abnormal finding of lung field (principal); J41.1 Mucopurulent chronic bronchitis; F17.200 Nicotine dependence, unspecified, uncomplicated; I10 Essential (primary) hypertension; R07.9 Chest pain, unspecified
CPT/HCPCS: 99214; G2211

== ENCOUNTER → 2025-08-10 14:16 | Outpatient (BNVA) | payer MEDICARE, SELFPAY | PROVIDERS: PCP Internal Medicine; Visit Provider Hospitalist | DX: J41.1 Mucopurulent chronic bronchitis (principal); R91.8 Other nonspecific abnormal finding of lung field; F17.200 Nicotine dependence, unspecified, uncomplicated; I10 Essential (primary) hypertension; R07.9 Chest pain, unspecified; Z79.899 Other long term (current) drug therapy | CPT/HCPCS: 99212 ==